=== PATIENT | male | born 1975 | race Caucasian/White ===

== ENCOUNTER 2019-10-04 03:44 | Emergency (ER) | payer MEDICAID ==
[~2019-10-04] VITALS: Ht 172.7 cm; Wt 102.6 kg
[2019-10-04 03:59] VITALS: BP 137/80
--- NOTE | 2019-10-04 05:12 | NUR ---
DR. MARTINEZ AT BEDSIDE UPDATING PT ON POC
--- NOTE | 2019-10-04 05:51 | NUR ---
Patient/Caregiver given discharge instructions and they have confirmed that they understand the instructions. Patient ambulatory with steady gait.
== END 2019-10-04 05:53 | disposition home or self-care (01) ==
LOC: EDSEX 03:44 → ED 04:45
DX: S63.622A Sprain of interphalangeal joint of left thumb, initial encounter (principal); E11.9 Type 2 diabetes mellitus without complications; F17.210 Nicotine dependence, cigarettes, uncomplicated; W00.0XXA Fall on same level due to ice and snow, initial encounter; Y93.89 Activity, other specified; Y92.009 Unspecified place in unspecified non-institutional (private) residence as the place of occurrence of the external cause; Y99.8 Other external cause status
CPT/HCPCS: 29125; 99283